=== PATIENT | female | born 2000 | race Asian ===

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

== ENCOUNTER 2022-03-22 23:01 | Emergency (ER) | payer BC ==
[~2022-03-22] VITALS: Ht 162.6 cm; Wt 47.6 kg
--- NOTE | 2022-03-22 23:10 | NUR ---
Patient ambulatory with steady gait. A/O x4. NAD noted.
--- NOTE | 2022-03-22 23:15 | NUR ---
Dr. Shaw at bedside. MSE in progress.
[2022-03-22 23:44] LABS: *BILIRUBIN,URIN NEGATIVE (NEGATIVE); *BLOOD, URINE NEGATIVE (NEGATIVE); *CLARITY,URINE CLEAR (CLEAR); *COLOR,URINE YELLOW (YELLOW); *KETONES,URINE NEGATIVE (NEGATIVE); *UROBILINOGEN,URINE 0.2 E.U./dl (NORMAL); LEUKOCYTE ESTERASE ,URINE NEGATIVE (NEGATIVE); NITRITE, URINE POSITIVE (NEGATIVE); UGLUCOSE NEGATIVE (NEGATIVE)
[2022-03-22 23:56] LABS: *URINE HCG, QUAL NEGATIVE (NEGATIVE)
[2022-03-23] MEDS ORDERED: PHENAZOPYRIDINE HCL 100 MG TABLET ONE (01:19)
[2022-03-23] MEDS ORDERED: SULFAMETH/TRIMETH 800/160 MG TABLET ONE (01:19)
[2022-03-23] MEDS ORDERED: PHEN-704 PO (01:20)
[2022-03-23] MEDS ORDERED: SULF1TAB48 PO (01:20)
--- NOTE | 2022-03-23 01:25 | NUR ---
Patient discharged to home in stable condition. A/O X4. NAD noted. All belongings with patient. Ambulatory with steady gait. Written and verbal after care instructions given. Patient verbalizes understanding of instructions. Stressed follow up or return to ER for worsening s/s.
[2022-03-23 01:27] VITALS: BP 120/73
[2022-03-23] MEDS ORDERED: SULFAMETH/TRIMETH 800/160 MG TABLET PO ONE (01:30)
[2022-03-23] MEDS ORDERED: PHENAZOPYRIDINE HCL 100 MG TABLET PO ONE (01:30)
[2022-03-23 07:33] LABS: BACTERIA,URINE FEW /HPF (NONE SEEN); SQUAMOUS EPITHELIAL CELL,UR FEW /HPF (NONE SEEN); WBC,URINE 0-3 /HPF (0-3)
== END 2022-03-23 01:25 | disposition home or self-care (01) ==
LOC: ER 23:01
DX: N30.90 Cystitis, unspecified without hematuria (principal); Z87.440 Personal history of urinary (tract) infections
CPT/HCPCS: 84703; 87077; 87086